=== PATIENT | female | born 1995 | race Caucasian/White ===

== ENCOUNTER 2018-01-18 15:24 | Observation (INO) ==
--- NOTE | 2018-01-18 16:14 | OB/GYN Progress Note ---
Date of Encounter: 01/18/18 Time of Encounter: 16:10 - Assessment and Plan (1) Periumbilical abdominal pain Current Visit: Yes Status: Acute 24 weeks 0 days gestation Round ligament pain vs adhesion pain vs UTI Urinalysis pending Anticipate discharge home with labor precautions Follow up in office with routine care as scheduled and prn (2) 24 weeks gestation of Current Visit: Yes Status: Acute Subjective - Subjective Principal diagnosis: Periumbilical pain Interval history: 25year old at 24 weeks 0 days presents to triage with reports sharp pains around umbilicus for past two days that increases with movement and walking. Previous CS x 2. Denies vaginal bleeding, leaking fluid or contractions. States baby is moving well. Denies urinary frequency and dysuria. States has history chronic mild HAs that are are relieved with heated rice packs. Denies visual disturbances and upper abdominal pain. Antepartum ROS: new complaints, movement normal, no loss of fluid, no vaginal bleeding, no contractions Objective - Vital Signs Vital Signs: Intake and Output 01/18/18 01/18/18 01/18/18 07:59 15:59 23:59 Other: Weight 60.9 kg Patient Weight 01/18/18 23:59 Weight 60.9 kg - Exam FHR: other FHR comments: FHR 145 Auscultation: bilateral: normal Abdomen: Present: soft, gravid, tenderness (tenderness around umbilicus ) Uterus: Present: normal Comments: Negative CVA tenderness
[2018-01-18 16:23] LABS: Amphetamine Screen,Urine Negative ng/mL (Cutoff=1000); Barbiturate Screen,Urine Negative ng/mL (Cutoff=200); Benzodiazepines Screen,Urine Negative ng/mL (Cutoff=200); Cannabinoid Screen,Urine Negative ng/mL (Cutoff = 50); Cocaine Screen,Urine Negative ng/mL (Cutoff= 300); Opiate Screen,Urine Negative ng/mL (Cutoff=300); Phencyclidine Screen,Urine Negative ng/mL (Cutoff=25)
[2018-01-18 16:38] LABS: Clarity,Urine Cloudy (Clear); Color,Urine Yellow (Yellow)
[2018-01-18 16:39] LABS: Bilirubin,Urine Negative (Negative); Blood,Urine Negative (Negative); Glucose,Urine (UA) Normal (Normal); Ketones,Urine Negative (Negative); Nitrite,Urine Negative (Negative); Protein,Urine Negative (Neg-Trace); Specific Gravity,Urine 1.023 (1.010-1.025); Urobilinogen,Urine Normal (Normal)
[2018-01-18 16:40] LABS: Leukocyte Esterase,Urine Negative (Negative)
[2018-01-18 16:52] LABS: Bacteria,Urine Moderate per hpf (None-Few); Mucus,Urine Moderate (Few); Squamous Epithelial Cell,Urine Moderate per lpf (None-Few)
== END 2018-01-18 17:05 | disposition home or self-care (01) ==
LOC: 1NENULAB
PROVIDERS: ADMIT Obstetrics & Gynecology; ATTEND Obstetrics & Gynecology

== ENCOUNTER → 2018-02-06 15:04 | Observation (INO) ==
[2018-02-06 13:46] VITALS: BP 119/57
[2018-02-06 13:58] LABS: Bilirubin,Urine Negative (Negative); Blood,Urine Negative (Negative); Clarity,Urine Cloudy (Clear); Color,Urine Yellow (Yellow); Glucose,Urine (UA) Normal (Normal); Ketones,Urine Negative (Negative); Leukocyte Esterase,Urine Small (Negative); Nitrite,Urine Negative (Negative); Protein,Urine Negative (Neg-Trace); Specific Gravity,Urine 1.018 (1.010-1.025); Urobilinogen,Urine Normal (Normal)
[2018-02-06 14:00] LABS: Bacteria,Urine Moderate per hpf (None-Few); Hyaline Casts,Urine None Seen per lpf (None-Few); Squamous Epithelial Cell,Urine Many per lpf (None-Few)
[2018-02-06 14:13] LABS: Amphetamine Screen,Urine Negative ng/mL (Cutoff=1000); Barbiturate Screen,Urine Negative ng/mL (Cutoff=200); Benzodiazepines Screen,Urine Negative ng/mL (Cutoff=200); Cannabinoid Screen,Urine Negative ng/mL (Cutoff = 50); Cocaine Screen,Urine Negative ng/mL (Cutoff= 300); Opiate Screen,Urine Negative ng/mL (Cutoff=300); Phencyclidine Screen,Urine Negative ng/mL (Cutoff=25)
--- NOTE | 2018-02-06 14:51 | Discharge Summary ---
Date of Encounter: 02/06/18 Time of Encounter: 14:51 - Discharge Diagnosis (1) 26 weeks gestation of Priority: Primary Status: Acute Comments: admitted for observation (2) UTI (urinary tract infection) in in second trimester Priority: Secondary Status: Acute Comments: RX for Macrobid 100mg po BID x 7 days. - Discharge Medications Prescriptions: Nitrofurantoin (BID) [Macrobid] 100 mg PO BID 7 Days #14 capsule Home Medications: Pnv Cmb#21/Iron/Folic Acid [ Complete Caplet] 1 each PO DAILY #30 tablet 05/13/17 [Rx] Nitrofurantoin (BID) [Macrobid] 100 mg PO BID 7 Days #14 capsule 02/06/18 [Rx] Allergies/Adverse Reactions: 3 Allergy/AdvReac Type Severity Reaction Status Date / Time Amoxicillin Allergy Swelling Verified 01/18/18 16:03 of Lip/Tongue/Throat cephalexin [From Keflex] Allergy Hives Verified 06/19/17 11:02 Data Procedures and tests throughout hospitalization: Laboratory Tests 02/06/18 02/06/18 13:40 13:40 Urine Color Yellow Urine Clarity Cloudy A Urine pH 7.0 Ur Specific [place] 1.018 Urine Protein Negative Urine Glucose (UA) Normal Urine Ketones Negative Urine Blood Negative Urine Nitrite Negative Urine Bilirubin Negative Urine Urobilinogen Normal Ur Leukocyte Esterase Small H Urine Microscopic RBC 3-5 H Urine Microscopic WBC 5-15 H Ur Squamous Epith Cells Many H Urine Bacteria Moderate H Hyaline Casts None Seen Ur Culture Indicated? NO. A Urine Opiates Screen Negative Ur Barbiturates Screen Negative Ur Phencyclidine Scrn Negative Ur Amphetamines Screen Negative U Benzodiazepines Scrn Negative Urine Cocaine Screen Negative U Marijuana (THC) Screen Negative Labs on day of discharge: Labs from last 24 hours 02/06/18 02/06/18 13:40 13:40 Urine Color Yellow Urine Clarity Cloudy A Urine pH 7.0 Ur Specific [place] 1.018 Urine Protein Negative Urine Glucose (UA) Normal Urine Ketones Negative Urine Blood Negative Urine Nitrite Negative Urine Bilirubin Negative Urine Urobilinogen Normal Ur Leukocyte Esterase Small H Urine Microscopic RBC 3-5 H Urine Microscopic WBC 5-15 H Ur Squamous Epith Cells Many H Urine Bacteria Moderate H Hyaline Casts None Seen Ur Culture Indicated? NO. 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 Patient also reports decreased movement. Patient denies contractions, LOF or VB. Time Attestation: Total time spent providing and/or coordinating discharge services: Time Spent: Less than 30 minutes Exam - Constitutional Vitals: Temp Pulse Resp BP 98.3 F 84 14 119/57 02/06/18 13:40 02/06/18 13:40 02/06/18 13:40 02/06/18 13:40 General appearance IM: A&O X 3, pleasant, answers questions appropriately - Respiratory Respiratory exam: Present: CTAB - Cardiovascular Cardiovascular exam IM: Present: RRR, +S1, +S2 - GI/Abdominal GI/Abdominal exam IM: normal bowel sounds Additional comments: tender over bladder - Extremities Exam Extremities exam IM: Present: full ROM, normal capillary refill, normal inspection - Neurological Exam Neurological exam: alert, oriented X3, reflexes normal - Other Additional findings: FHR 140 bpm moderate variability no contractions. FHR tracing appropriate for gestational age. - VTE Reasons for not Prescribing Prophylaxis: Treatment not Indicated - Low risk for VTE
== END | disposition home or self-care (01) ==
LOC: 1NENULAB
PROVIDERS: ADMIT Advanced Practice Midwife; ATTEND Advanced Practice Midwife

== ENCOUNTER → 2018-04-01 15:47 | Observation (INO) ==
[2018-04-01 13:51] LABS: Bilirubin,Urine Negative (Negative); Blood,Urine Trace (Negative); Clarity,Urine Cloudy (Clear); Color,Urine Yellow (Yellow); Glucose,Urine (UA) Normal (Normal); Ketones,Urine Negative (Negative); Leukocyte Esterase,Urine Small (Negative); Nitrite,Urine Negative (Negative); Protein,Urine Negative (Neg-Trace); Specific Gravity,Urine 1.016 (1.010-1.025); Urobilinogen,Urine Normal (Normal)
[2018-04-01 13:53] LABS: Bacteria,Urine None Seen per hpf (None-Few); Hyaline Casts,Urine None Seen per lpf (None-Few); Squamous Epithelial Cell,Urine Many per lpf (None-Few)
--- NOTE | 2018-04-01 17:03 | OB/GYN Progress Note ---
Date of Encounter: 04/01/18 Time of Encounter: 17:01 - Assessment and Plan (1) 34 weeks gestation of Status: Acute (2) Vaginal bleeding during Status: Acute Speculum exam shows no bleeding and vaginal vault. Cervix closed. Reactive tracing. Physical exam negative. Patient discharged home with bleeding, labor and when to return to triage precautions. Patient verbalizes understanding Subjective - Subjective Interval history: 34+3 weeks gestation presents to triage with complaints of vaginal bleeding. Patient states she was laying on the couch earlier and felt wetness went to the bathroom and noticed bright red blood running down her leg. Patient states she then put on a pad preceded to have bleeding on the pad. Reports good movement, denies leaking of fluid or contractions Antepartum ROS: vaginal bleeding, movement normal, no loss of fluid, no contractions Objective - Vital Signs Vital Signs: Intake and Output 04/01/18 04/01/18 04/01/18 07:59 15:59 23:59 Other: Weight 61.8 kg Patient Weight 04/01/18 23:59 Weight 61.8 kg - Exam FHR: auscultation normal FHR comments: 140 Abdomen: Present: normal appearance, soft, gravid Cervical dilation: Closed Comments: Speculum exam shows no evidence of bleeding in vaginal vault - Labs Labs: Abnormal lab results Urine Clarity Cloudy (Clear) A 04/01/18 13:41 Urine Blood Trace (Negative) H 04/01/18 13:41 Ur Leukocyte Esterase Small (Negative) H 04/01/18 13:41 Urine Microscopic RBC 3-5 per hpf (0-3) H 04/01/18 13:41 Urine Microscopic WBC 5-15 per hpf (0-3) H 04/01/18 13:41 Ur Squamous Epith Cells Many per lpf (None-Few) H 04/01/18 13:41 Ur Culture Indicated? NO. (NO) A 04/01/18 13:41
[2018-04-01 19:45] LABS: Amphetamine Screen,Urine Negative ng/mL (Cutoff=1000); Barbiturate Screen,Urine Negative ng/mL (Cutoff=200); Benzodiazepines Screen,Urine Negative ng/mL (Cutoff=200); Cannabinoid Screen,Urine Negative ng/mL (Cutoff = 50); Cocaine Screen,Urine Negative ng/mL (Cutoff= 300); Opiate Screen,Urine Negative ng/mL (Cutoff=300); Phencyclidine Screen,Urine Negative ng/mL (Cutoff=25)
== END | disposition home or self-care (01) ==
LOC: 1NENULAB
PROVIDERS: ADMIT Obstetrics & Gynecology; ATTEND Obstetrics & Gynecology

== ENCOUNTER 2018-04-18 13:38 | Inpatient (IN) ==
[~2018-04-18 13:38] MED LIST: *HR* Nalbuphine 10 MG/ML AMPUL IVP PRN; Bupivacaine-MPF 0.25% 10 ML VIAL ONE; Epidural Premix (fent/bupiv) 110 ML EP ONE; Famotidine 20 MG/2 ML VIAL IVP PRN; Lidocaine -MPF 2% 5 ML VIAL ONE; Metoclopramide 10 MG/2 ML VIAL IVP PRN; Naloxone 0.4 MG/ML INJ IVP PRN; Ondansetron 4 MG/2 ML VIAL IVP PRN; Ringers Solution, Lactated 1,000 ML ONE
[2018-04-18] MEDS ORDERED: Ringers Solution, Lactated 1,000 ML IVC SCH (13:45)
--- NOTE | 2018-04-18 13:45 | OB/GYN History & Physical ---
Date of Encounter: 04/18/18 Time of Encounter: 13:37 Assessment and Plan (1) 36 weeks gestation of Current visit: Yes Status: Acute (2) Spontaneous onset of labor Current visit: Yes Status: Acute (3) Gestational diabetes mellitus (GDM) affecting third Current visit: Yes Status: Acute Patient managed by [facility] with NPH and Lispro (4) Gestational diabetes mellitus, class A2 Current visit: Yes Status: Acute (5) Encounter for trial of labor Current visit: Yes Status: Acute Patient has had successful vaginal delivery and then a LTCS for category 2 FHTs. She desires TOLAC with epidural. Patient is verbally consented and prior consent with [facility]. Predicted 91% success rate antepartum. Now with cervical dilation and spontaneous labor her success rate is 95%. Anesthesia is notified and comfortable with the plan. She will be given epidural once her IV is established. EFW on 04/12 78th% RAJNI 21 cm vertex History of Present Illness Chief complaint: contractions HPI: Ms. Cat is a 22 year old female G3 P 2-0-0-2 at 36 6/7 weeks presents to labor and delivery for spontaneous onset of labor. She denies any leaking fluid. She states she is having vaginal bleeding since her cervical exam. Her has been complicated by GDM requiring insulin (managed by [facility]), previous and planning TOLAC, Rh negative, anemia of . She states she did not take her insulin this morning. She has not eaten since last night. Past Med Surg Social Fam HX - Past Medical History Source: patient Medical history: no medical history Psychiatric history: no psych history - Past Surgical History Surgical History: , orthopedic, other (left hand) Additional surgical history: primary 02/2016. left hand sx 08/2016 - Social History Smoking Status: Never smoker Smokeless Tobacco Status: No Alcohol use: none Drug use: none - Family History Mother Living Status: Still Living Hx Family Cardiac Disorders: No Hx Family Respiratory Disorders: No Hx Family Cancer: No Hx Family GI Disorders: No Hx Family Endocrine Disorder: No Hx Family Neuromuscular Disorders: No Hx Family Neurologic Disorders: No Hx Family HEENT Disorders: No Hx Family Autoimmune Disorders: No Obstetrical History - Pregnancies : 3 Para: 2 Term: 2 : 0 Ab's: 0 Livin - History/Complications History/Complications: 1st vaginal delivery at 39 weeks weight 8 lb 1 oz, 2nd primary LTCS for category 2 FHR tracing Medications and Allergies Pnv Cmb#21/Iron/Folic Acid [ Complete Caplet] 1 each PO DAILY #30 tablet 05/13/17 [Rx] Ferrous Sulfate [Iron] 325 mg PO DAILY 04/01/18 [History] HumuLIN N 10 units SQ DAILY 04/01/18 [History] HumuLIN N 14 units SQ DAILY 04/01/18 [History] HumuLIN N 20 units SQ DAILY 04/01/18 [History] NovoLOG 20 units SQ DAILY 04/01/18 [History] NovoLOG 20 units SQ HS 04/01/18 [History] 3 Allergy/AdvReac Type Severity Reaction Status Date / Time Amoxicillin Allergy Swelling Verified 01/18/18 16:03 of Lip/Tongue/Throat cephalexin [From Keflex] Allergy Hives Verified 06/19/17 11:02 Review of System OB All systems PM: reviewed and no additional remarkable complaints except as stated Exam - Constitutional Constitutional: well developed, well nourished, moderate distress ( uncomfortable and breathing through contractions), thin - HEENT HEENT: EOMI - Lungs Respiratory exam: CTAB - Cardiovascular Cardiovascular exam: RRR - Abdomen Abdomen: Present: bowel sounds normal, gravid, non tender - Cervix Dilation: 5 Effacement: 100 Station: -1 Results O negative, varicella immune, rubella immune, VDRL negative, HIV negative
[2018-04-18] MEDS ORDERED: EPHEDrine 50 MG/ML VIAL IVP PRN (14:00)
[2018-04-18] MEDS ORDERED: Epidural Premix (fent/bupiv) 110 ML EP SCH (14:00)
[2018-04-18] MEDS ORDERED: Ringers Solution, Lactated 1,000 ML ONE (14:01)
[2018-04-18 14:04] LABS: Basophils % 0.2 %; Eosinophils # 0.2 K/mcL (0.0-0.6); Eosinophils % 0.8 %; Hematocrit 34.5 % (35.3-44.9); Hemoglobin 11.8 g/dL (11.5-15.4); Immature Granulocytes % 1.3 % (0-4); Lymphocytes # 1.6 K/mcL (0.6-4.6); Lymphocytes % 8.9 %; Mean Corpuscular HGB Conc 34.2 g/dL (31.6-35.5); Mean Corpuscular Hemoglobin 30.6 pg (28.0-33.3); Mean Corpuscular Volume 89.6 fL (83.0-100.0); Mean Platelet Volume 10.6 fL (9.4-12.4); Monocytes # 1.6 K/mcL (0.0-1.3); Neutrophils # 14.5 K/mcL (1.6-8.9); Platelet Count 265 K/mcL (140-400); Red Blood Count 3.85 M/mcL (3.82-4.97); Red Cell Distribution Width 13.1 % (11.5-14.5); Segmented Neutrophils % 79.8 %
--- NOTE | 2018-04-18 14:04 | Anesthesia Evaluation PreOp ---
Date of Encounter: 04/18/18 Time of Encounter: 13:42 - Past History Planned Operation: vaginal del, Cardiac History: Denies any Significant Hx Pulmonary History: Denies Any Significant HX CHANGE MANAGER History: Denies Any Significant HX Other Medical History: Other (gestational DM requiring insulin with [facility] management.) Anesthesia History: No Prior Anesthetic Complications, Past Anesthesia (1- vaginal del under epidural 2- under spinal 3- currently TOLAC) Alcohol Use: none Drug use: none Medications and Allergies Pnv Cmb#21/Iron/Folic Acid [ Complete Caplet] 1 each PO DAILY #30 tablet 05/13/17 [Rx] Ferrous Sulfate [Iron] 325 mg PO DAILY 04/01/18 [History] HumuLIN N 10 units SQ DAILY 04/01/18 [History] HumuLIN N 14 units SQ DAILY 04/01/18 [History] HumuLIN N 20 units SQ DAILY 04/01/18 [History] NovoLOG 20 units SQ DAILY 04/01/18 [History] NovoLOG 20 units SQ HS 04/01/18 [History] 3 Allergy/AdvReac Type Severity Reaction Status Date / Time Amoxicillin Allergy Swelling Verified 01/18/18 16:03 of Lip/Tongue/Throat cephalexin [From Keflex] Allergy Hives Verified 06/19/17 11:02 Anesthesia Results - Labs 04/18/18 13:35 Anesthesia Exam - HEENT Pupil (Motor): Pupils equal Mallampati: II Teeth: Normal Oral Opening: Greater than 3 - CHANGE MANAGER LOC: Oriented CHANGE MANAGER Motor: Normal RUE, Normal LUE, Normal RLE, Normal LLE, Normal Face CHANGE MANAGER Sensory: Normal: RUE, LUE, RLE, LLE, Face - Cardiac Rhythm: Regular Murmur: None - Pulmonary Breath Sounds: bilateral Clear Respiratory Effort: Symmetrical Anesthesia Assess/Plan ASA Score: 2 Modified [place] Scale for Level of Consciousness: Cooperative, oriented, and tranquil Anesthetic Plan: General, Regional Monitoring Plan: Standard Monitors Recovery Plan: PACU
--- NOTE | 2018-04-18 14:10 | Anesthesia Procedures ---
Date of Encounter: 04/18/18 Time of Encounter: 13:44 Procedures: Anesthesia - Epidural/Spinal Patient ID/Chart reviewed: Yes Patient examined: Yes OB Eval: Gestational age: 36 OB Eval: : 3 OB Eval: Hx Para: 2 OB Eval: Dilated at (cm): 5 OB Eval: Contractions: Non-stressed pattern Consent Obtained: Yes Supplemental Oxygen: None/Room Air Site Prep: Aseptic Technique, Sterile prep and drape, 0.5% Chlorhexidine/Alcohol Patient position: upright Local Anesthetic: Lidocaine 1% Amount of Local Anesthetic used: 2 Touhy Needle Gauge: 18 Touhy Needle Depth (cm): 6 Catheter Depth at Skin (cm): 10 Test Dose (1.5% Lido + Epi): Volume given (mls): 3 Test Dose Result: Negative Loading Dose: Other: 10ml from solution Loading Dose Administered: Thru Catheter Infusion Med: 0.125% Bupivacaine w/ 2 mcg/ml Fentanyl Infusion Rate (mls/hr): [address]: Tegaderm, Tape Interspace Used: L3-L4 Loss of Resistance (PEYMAN): Yes (saline) Blood: No CSF: Yes (dural puncture with 27g no meds INJ. ) Paresthesia: No Procedure: vss though out, FHR stable per staff.
--- NOTE | 2018-04-18 16:16 | OB Labor Progress Note ---
Date of Encounter: 04/18/18 Time of Encounter: 16:14 Labor Progress Note - Subjective Subjective: Patient comfortable after epidural. She denies any concerns or complaints. - Cervix Cervix: 8/100/+1 - Heart Tones Heart Tones: category 1, baseline 125 - Sunman Sunman: q 1-2 minutes - Interventions Interventions: AROM with moderate amount of clear fluid, cephalic presentation - Plan Plan: Continue EFM with expectant management.
[2018-04-18] MEDS ORDERED: Oxytocin 20 units/ LR 1000 mL 20 UNIT/1,000 ML BAG IVC ONE ×3 (16:56→22:38)
[2018-04-18] MEDS ORDERED: Acetaminophen 325 MG TABLET PO ONE (19:40)
[2018-04-18] MEDS ORDERED: Clindamycin 900 MG/50 ML 900 MG/50 ML IV.SOLN IVPB ONE (19:49)
--- NOTE | 2018-04-18 20:32 | OB/GYN Procedure Note ---
Delivery - Delivery Date: 04/18/18 Provider: Lupe Arthur Intrapartum events: febrile- temp >100.3 Delivery augmentation: rupture of membranes Delivery monitor: external FHT, external uterine Anesthesia: epidural Quantitated Blood Loss: 100 - (s) Infant A Infant Delivery Date: 04/18/18 Infant Delivery Time: 20:06 Presentation: vertex Position: SRINIVAS Route of delivery: Gender: Male Viability: Viable Pounds: 7 Ounces: 5 at 1 minute: 9 at 5 mins: 9 Shoulder Dystocia: not encountered Specimens collected: cord blood Placenta: spontaneous Cord: 3 umbilical vessels - Repair Episiotomy: none Laceration Description: None - Complications Delivery complications: none Delivery comments: Called to room with patient complete and +1 station. Under maternal effort she delivered a viable male weighing 7 lb 5 oz and Apgars 9 and 9 at one and five minutes respectively over and intact perineum. Following delivery the was placed on mom's abdomen crying and vigorous. The cord was double clamped and cut. Cord blood was collected. Placenta delivered spontaneously, complete, and intact with a 3 vessel cord. No labial, vaginal, or cervical lacs noted on exam. Mother and are recovering in LDR in stable condition. There was no shoulder dystocia or nuchal cord encountered. - Disposition Mom disposition: stable in LDR [place] disposition: stable in LDR
[2018-04-18] MEDS ORDERED: Rho Immune Globulin 1,500 UNIT SYRINGE IM PRN (22:38)
[2018-04-18] MEDS ORDERED: Acetaminophen 325 MG TABLET PO PRN (22:38)
[2018-04-18] MEDS ORDERED: Oxytocin 20 units/ LR 1000 mL 20 UNIT/1,000 ML BAG IVC SCH (22:38)
[2018-04-19] MEDS: Ibuprofen 600 MG TABLET PO PRN ×2 (00:58→10:07)
[2018-04-19 06:37] LABS: Basophils # 0.1 K/mcL (0.0-0.2); Basophils % 0.2 %; Eosinophils # 0.2 K/mcL (0.0-0.6); Eosinophils % 0.8 %; Hematocrit 30.7 % (35.3-44.9); Hemoglobin 10.5 g/dL (11.5-15.4); Immature Granulocytes % 1.2 % (0-4); Lymphocytes # 1.7 K/mcL (0.6-4.6); Lymphocytes % 7.6 %; Mean Corpuscular HGB Conc 34.2 g/dL (31.6-35.5); Mean Corpuscular Hemoglobin 30.3 pg (28.0-33.3); Mean Corpuscular Volume 88.7 fL (83.0-100.0); Mean Platelet Volume 10.1 fL (9.4-12.4); Monocytes # 2.2 K/mcL (0.0-1.3); Monocytes % 10.1 %; Neutrophils # 17.5 K/mcL (1.6-8.9); Platelet Count 282 K/mcL (140-400); Red Blood Count 3.46 M/mcL (3.82-4.97); Red Cell Distribution Width 13.2 % (11.5-14.5); Segmented Neutrophils % 80.1 %
--- NOTE | 2018-04-19 08:53 | Discharge Summary ---
Date of Encounter: 04/19/18 Time of Encounter: 08:50 - Discharge Diagnosis (1) Vaginal delivery Priority: Primary Status: Acute Comments: Pain well controlled with po pain meds VSS Tolerating regular diet Voiding independently Passing flatus, but no BM yet Ambulating independently Lochia light Discharge to guest today (2) Breast feeding status of mother Priority: Secondary Status: Acute Comments: Community resources provided (3) anemia Priority: Secondary Status: Acute Comments: Increase iron rich foods in diet - Discharge Medications Prescriptions: Ibuprofen [Motrin] 600 mg PO Q6HR PRN #30 tablet PRN Reason: Cramping Docusate [Colace] 100 mg PO BID #30 capsule Home Medications: Pnv Cmb#21/Iron/Folic Acid [ Complete Caplet] 1 each PO DAILY #30 tablet 05/13/17 [Rx] Acetaminophen [Tylenol] 650 mg PO Q6HR PRN tablet 04/19/18 [Rx] Docusate [Colace] 100 mg PO BID #30 capsule 04/19/18 [Rx] Ibuprofen [Motrin] 600 mg PO Q6HR PRN #30 tablet 04/19/18 [Rx] Allergies/Adverse Reactions: 3 Allergy/AdvReac Type Severity Reaction Status Date / Time Amoxicillin Allergy Swelling Verified 01/18/18 16:03 of Lip/Tongue/Throat cephalexin [From Keflex] Allergy Hives Verified 06/19/17 11:02 Data Procedures and tests throughout hospitalization: Laboratory Tests 04/18/18 04/18/18 04/19/18 13:35 20:30 06:27 WBC 18.2 H 21.8 H RBC 3.85 3.46 L Hgb 11.8 10.5 L Hct 34.5 L 30.7 L MCV 89.6 88.7 MCH 30.6 30.3 MCHC 34.2 34.2 RDW 13.1 13.2 Plt Count 265 282 MPV 10.6 10.1 Immature Gran % 1.3 1.2 Seg Neutrophils % 79.8 80.1 Lymphocytes % 8.9 7.6 Monocytes % 9.0 10.1 Eosinophils % 0.8 0.8 Basophils % 0.2 0.2 Neutrophils # 14.5 H 17.5 H Lymphocytes # 1.6 1.7 Monocytes # 1.6 H 2.2 H Eosinophils # 0.2 0.2 Basophils # 0.0 0.1 Baby's Blood Type O RH POSITIVE Mother's Blood Type O RH NEGATIVE Rhogam Indicated YES Labs on day of discharge: Labs from last 24 hours 04/19/18 04/18/18 04/18/18 06:27 20:30 13:35 WBC 21.8 H 18.2 H RBC 3.46 L 3.85 Hgb 10.5 L 11.8 Hct 30.7 L 34.5 L MCV 88.7 89.6 MCH 30.3 30.6 MCHC 34.2 34.2 RDW 13.2 13.1 Plt Count 282 265 MPV 10.1 10.6 Immature Gran % 1.2 1.3 Seg Neutrophils % 80.1 79.8 Lymphocytes % 7.6 8.9 Monocytes % 10.1 9.0 Eosinophils % 0.8 0.8 Basophils % 0.2 0.2 Neutrophils # 17.5 H 14.5 H Lymphocytes # 1.7 1.6 Monocytes # 2.2 H 1.6 H Eosinophils # 0.2 0.2 Basophils # 0.1 0.0 Screen Pending Baby's Blood Type O RH POSITIVE Mother's Blood Type O RH NEGATIVE Rhogam Indicated YES Rhogam Req for Mother Pending Preliminary micro results at discharge 04/18/18 20:30 Placental Culture - Preliminary Placenta Date of admission: 04/18/18 13:38 Consults: 04/18/18 22:38 Consult to Product Safety Technical Assistant [CONS] Routine Comment: Vaginal delivery, consult needed Discharging clinician: Sue Morales Anticipated date of discharge: 04/19/18 - Patient Status Disposition: Home, Self-Care Condition: Good Functional capacity at discharge: independent ambulation Overall status at discharge: patient is progressing back to baseline - Discharge Instructions Follow Up With: Erin Burr DO [Partnered Physician] - - Diet and Activity Activity: increase activity as tolerated Diet: regular diet Hospital Course Reason for admission: active labor, labor Delivery: Episiotomy: none Laceration: none Other procedures: none complications: none Discharge diagnosis: delivery [place] baby: male Time Attestation: Total time spent providing and/or coordinating discharge services: Time Spent: Less than 30 minutes Exam - Constitutional Vitals: Temp Pulse Resp BP Pulse Ox 97.7 F 89 12 116/70 98 04/19/18 07:40 04/19/18 07:40 04/19/18 07:40 04/19/18 07:40 04/19/18 07:40 General appearance IM: A&O X 3 - Respiratory Respiratory exam: Present: CTAB - Cardiovascular Cardiovascular exam IM: Present: RRR, +S1, +S2 - GI/Abdominal GI/Abdominal exam IM: normal bowel sounds, no peritoneal signs - Rectal Rectal exam: deferred - Uterine Tone: Firm Uterus Position: 1 Finger Below Umbilicus, Midline - Extremities Exam Extremities exam IM: Present: normal capillary refill, normal inspection, radial pulses palpable and symmetrical - Neurological Exam Neurological exam: alert, CN II-XII intact, normal gait, oriented X3, reflexes normal, no focal deficits, strengths equal and symetr throughout - Psychiatric Additional comments: Signs and symptoms of depression discussed and patient and partner verbalize understanding of when to seek help. - Other Additional findings: Breasts: Soft, nontender. Nipples intact without erythema.
[2018-04-19] MEDS ORDERED: Prenatal Vit/FA 1 EACH TABLET PO SCH (09:00)
[2018-04-19 16:43] VITALS: BP 106/61
== END 2018-04-19 17:26 | disposition home or self-care (01) | DRG 775 ==
LOC: 1NENULAB → 1NENUOBS 22:35
PROVIDERS: ADMIT Advanced Practice Midwife; ATTEND Advanced Practice Midwife

== ENCOUNTER → 2021-11-06 12:35 | Observation (INO) ==
[2021-11-06 09:52] LABS: Bacteria,Urine Few per hpf (None-Few); Bilirubin,Urine Negative (Negative); Blood,Urine Negative (Negative); Clarity,Urine Turbid (Clear); Color,Urine Yellow (Yellow); Glucose,Urine (UA) Normal (Normal); Ketones,Urine Negative (Negative); Leukocyte Esterase,Urine Trace (Negative); Mucus,Urine Few per lpf (None-Few); Nitrite,Urine Negative (Negative); Protein,Urine Trace mg/dL (Neg-Trace); RBC,Urine 0-3 per hpf (0-3); Specific Gravity,Urine 1.021 (1.010-1.025); Squamous Epithelial Cell,Urine Few per hpf (None-Few); Urobilinogen,Urine Normal (Normal)
[2021-11-06 12:12] LABS: Trichomonas DNA Not Detected (Not Detect)
[2021-11-06 12:13] LABS: Candida DNA Not Detected (Not Detect); Gardnerella DNA Not Detected (Not Detect)
== END | disposition home or self-care (01) ==
LOC: 1NENULAB
PROVIDERS: ADMIT Advanced Practice Midwife; ATTEND Advanced Practice Midwife

== ENCOUNTER 2022-02-21 05:04 | Inpatient (IN) ==
[2022-02-21] MEDS ORDERED: Naloxone 0.4 MG/ML INJ IVP PRN (05:24)
[2022-02-21] MEDS ORDERED: Metoclopramide 10 MG/2 ML VIAL IVP PRN ×2 (05:24→12:02)
[2022-02-21] MEDS ORDERED: *HR* Nalbuphine 10 MG/ML AMPUL IV PRN ×2 (05:24→07:23)
[2022-02-21] MEDS ORDERED: Ondansetron 4 MG/2 ML VIAL IVP PRN ×2 (05:24→12:02)
[2022-02-21] MEDS ORDERED: Lidocaine 1% 20 ML MDV INFILT PRN (05:24)
[2022-02-21] MEDS ORDERED: Famotidine 20 MG/2 ML VIAL IVP PRN (05:24)
[2022-02-21 05:58] LABS: Basophils % 0.4 %; Eosinophils # 0.3 K/mcL (0.0-0.6); Eosinophils % 3.7 %; Hematocrit 32.6 % (35.3-44.9); Hemoglobin 10.4 g/dL (11.5-15.4); Immature Granulocytes % 0.9 % (0-4); Lymphocytes # 2.1 K/mcL (0.6-4.6); Mean Corpuscular HGB Conc 31.9 g/dL (31.6-35.5); Mean Corpuscular Volume 87.6 fL (83.0-100.0); Mean Platelet Volume 10.8 fL (9.4-12.4); Monocytes # 0.8 K/mcL (0.0-1.3); Monocytes % 10.1 %; Neutrophils # 4.3 K/mcL (1.6-8.9); Platelet Count 223 K/mcL (140-400); Red Blood Count 3.72 M/mcL (3.82-4.97); Red Cell Distribution Width 13.2 % (11.5-14.5); Segmented Neutrophils % 56.9 %; White Blood Count 7.5 K/mcL (4.3-11.1)
[2022-02-21] MEDS: Ringers Solution, Lactated 1,000 ML IVC SCH ×2 (06:06→07:06)
[2022-02-21 06:32] LABS: Influenza A PCR Negative (Negative); Influenza B PCR Negative (Negative); Resp. Syncytial Virus PCR Negative (Negative)
[2022-02-21 06:52] LABS: SARS-CoV-2 by PCR (In House) Negative (Negative)
[2022-02-21] MEDS ORDERED: *HR* OxyCODONE Immed Rel 5 MG TABLET PO PRN (07:21)
[2022-02-21] MEDS ORDERED: *HR* FentaNYL (PF) 100 MCG/2 ML VIAL IVP PRN (07:21)
[2022-02-21] MEDS ORDERED: Clindamycin 900 MG/50 ML 900 MG/50 ML IV.SOLN IVPB STA (07:31)
[2022-02-21] MEDS ORDERED: Gentamicin 300 MG in 0.9 % Sodium Chloride 100 ML IVPB ONE (07:32)
[2022-02-21] MEDS ORDERED: *HR* Morphine Sulfate/PF 10 MG/10 ML AMPUL ONE (07:33)
[2022-02-21] MEDS ORDERED: *HR* FentaNYL (PF) 100 MCG/2 ML VIAL ONE (07:33)
[2022-02-21] MEDS ORDERED: Acetaminophen IV 1,000 MG/100 ML BAG IVPB ONE (07:38)
[2022-02-21] MEDS ORDERED: Oxytocin 30 UNIT/503 ML BAG IVC ONE (07:41)
[2022-02-21] MEDS ORDERED: Ondansetron 4 MG/2 ML VIAL ONE (08:01)
[2022-02-21] MEDS ORDERED: *HR* Midazolam HCl 2 MG/2 ML VIAL ONE (08:21)
[2022-02-21 08:40] LABS: Amphetamine Screen,Urine Negative ng/mL (Cutoff=1000); Barbiturate Screen,Urine Negative ng/mL (Cutoff=200); Benzodiazepines Screen,Urine Negative ng/mL (Cutoff=200); Cannabinoid Screen,Urine Negative ng/mL (Cutoff = 50); Cocaine Screen,Urine Negative ng/mL (Cutoff= 300); Opiate Screen,Urine Negative ng/mL (Cutoff=300); Phencyclidine Screen,Urine Negative ng/mL (Cutoff=25)
[2022-02-21] MEDS ORDERED: Ketorolac 30 MG/ML VIAL ONE (09:11)
[2022-02-21] MEDS ORDERED: Oxytocin 30 UNIT/503 ML BAG IVC SCH (12:02)
[2022-02-21] MEDS ORDERED: Simethicone 80 MG TAB.CHEW PO PRN (12:02)
[2022-02-21] MEDS ORDERED: Ringers Solution, Lactated 1,000 ML IVC SCH (12:02)
[2022-02-21] MEDS ORDERED: Rho Immune Globulin 1,500 UNIT SYRINGE IM ONE (12:02)
[2022-02-21] MEDS ORDERED: NON-FORMULARY MEDICATION 1 EACH EACH (Prenatal 19 Tablet 1 TAB) PO SCH (12:02)
[2022-02-21] MEDS ORDERED: Methylergonovine 0.2 MG/ML AMPUL IM ONE ×2 (13:25→13:32)
[2022-02-21] MEDS: Ibuprofen 600 MG TABLET PO SCH ×2 (13:41→21:03)
[2022-02-21] MEDS: Prenatal Vit/FA 1 EACH TABLET PO SCH (13:41)
[2022-02-21] MEDS: Acetaminophen 325 MG TABLET PO SCH ×2 (13:44→21:04)
[2022-02-21] MEDS: *HR* OxyCODONE Immed Rel 5 MG TABLET PO PRN (19:33)
[2022-02-22] MEDS: Acetaminophen 325 MG TABLET PO SCH ×2 (03:06→15:53)
[2022-02-22] MEDS: Ibuprofen 600 MG TABLET PO SCH ×3 (03:06→15:52)
[2022-02-22 03:28] LABS: Basophils % 0.2 %; Eosinophils % 0.3 %; Hematocrit 21.2 % (35.3-44.9); Immature Granulocytes % 0.7 % (0-4); Lymphocytes # 1.4 K/mcL (0.6-4.6); Lymphocytes % 11.5 %; Mean Corpuscular HGB Conc 32.5 g/dL (31.6-35.5); Mean Corpuscular Hemoglobin 28.6 pg (28.0-33.3); Mean Platelet Volume 10.6 fL (9.4-12.4); Monocytes # 1.1 K/mcL (0.0-1.3); Monocytes % 8.9 %; Neutrophils # 9.4 K/mcL (1.6-8.9); Platelet Count 189 K/mcL (140-400); Red Blood Count 2.41 M/mcL (3.82-4.97); Red Cell Distribution Width 13.1 % (11.5-14.5); Segmented Neutrophils % 78.4 %
[2022-02-22 03:34] LABS: Hemoglobin 6.9 g/dL (11.5-15.4)
[2022-02-22] MEDS ORDERED: Acetaminophen 325 MG TABLET PO ONE (07:10)
[2022-02-22] MEDS: Prenatal Vit/FA 1 EACH TABLET PO SCH (08:32)
[2022-02-22] MEDS ORDERED: 0.9 % Sodium Chloride 1,000 ML ONE (09:06)
[2022-02-22] MEDS: *HR* OxyCODONE Immed Rel 5 MG TABLET PO PRN ×2 (09:08→17:47)
[2022-02-22 09:14] LABS: Hematocrit 20.4 % (35.3-44.9); Hemoglobin 6.7 g/dL (11.5-15.4)
[2022-02-22 15:39] VITALS: BP 97/55; PULSE 79; TEMP 97.6; O2SAT 99
[2022-02-22 16:15] LABS: Hemoglobin 7.8 g/dL (11.5-15.4)
== END 2022-02-22 18:30 | disposition home or self-care (01) | DRG 540 ==
LOC: 1NENULAB 05:04 → 1NENUOBS 11:38
PROVIDERS: ADMIT Student in an Organized Health Care Education/Training Program; ATTEND Student in an Organized Health Care Education/Training Program